=== PATIENT | female | born 1965 | race Caucasian/White ===

== ENCOUNTER 2025-01-23 07:19 | Outpatient (OUT) | payer BC, SELFPAY ==
--- OUTSIDE RECORDS SUMMARY | 2025-01-23 07:21 | XMS_ITS | Clinical Summary ---
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 Name Role Phone Unavailable Primary Care Provider Unavailabl e Social History Tobacco Use Types Packs/Day Years Used Date Smoking Tobacco: Never Assessed Comments Unknown Sex and Gender Information Value Date Recorded Sex Assigned at Not on file Legal Sex Female 10:13 PM EDT Gender Identity Not on file Sexual Orientation Not on file Last Filed Vital Signs Vital Sign Reading Time Taken Comments Blood Pressure - - Pulse - - Temperature - - Respiratory Rate - - Oxygen Saturation - - Inhaled Oxygen Concentration - - Weight 102 kg (225 lb) 08/31/2022 12:00 PM EST Height 160 cm (5' 3 ) 08/31/2022 12:00 PM EST Body Mass Index 39.86 08/31/2022 12:00 PM EST Plan of Treatment Not on file Insurance [employer]
--- NOTE | 2025-01-23 07:48 | MM_ITS ---
Patient Name: PEDRO SUTHERLAND MR#: [id number] : 1965 Exam Date: 01/23/2025 Ordering Doctor: DR TOÑO ALSTON M.D. RADIOLOGY REPORT PROCEDURE: MM TOMOSYNTHESIS SCREENING BI COMPARISON: MG MAMM SCREEN 3D [place] CAD, 05/26/2022. MG MAMM SCREEN 3D [place] CAD, 02/04/2021. MG MAMM [place] DIAG W CAD, 06/03/2018. MG MAMM [place] SCRN W CAD DIG, 03/20/2013. INDICATIONS: Screening Calculator Name NCI Breast Cancer Risk Assessment Tool 5 Year Breast Cancer Risk 4.20% Lifetime Breast Cancer Risk 20.10% Personal Breast Cancer No Personal Ovarian Cancer No Treatments None Family Cancers Sister with breast cancer at age 36; Mother with colon cancer at age 70. LOCATION: [facility] BREAST COMPOSITION: The breasts are extremely dense, which lowers the sensitivity of mammography. FINDINGS: RIGHT BREAST: MASS (finding with convex borders visible on two orthogonal views), characterized by circumscribed morphology, posterior depth, 8 o'clock position, and 9 mm size. LEFT BREAST: No significant suspicious finding. DIAGNOSTIC CATEGORY 0--INCOMPLETE: NEED ADDITIONAL IMAGING EVALUATION. RECOMMENDATIONS: ADDITIONAL MAMMOGRAPHIC VIEWS REQUIRED: RIGHT BREAST - spot compression ULTRASOUND: RIGHT BREAST PLEASE NOTE: A NORMAL MAMMOGRAM DOES NOT EXCLUDE THE POSSIBILITY OF BREAST CANCER. A CLINICALLY SUSPICIOUS PALPABLE LUMP SHOULD BE BIOPSIED. Dictated by: Phan Zamarripa DO on 01/23/2025 at 08:01 Approved by: Phan Zamarripa DO on 01/23/2025 at 08:49
== END 2025-01-23 07:20 | disposition home or self-care (01) ==
LOC: MAMMO 07:20
PROVIDERS: PCP Family Medicine; Visit Provider Family Medicine
DX: Z00.00 Encounter for general adult medical examination without abnormal findings (principal); Z12.31 Encounter for screening mammogram for malignant neoplasm of breast; I10 Essential (primary) hypertension; Z80.3 Family history of malignant neoplasm of breast; Z80.0 Family history of malignant neoplasm of digestive organs; R92.8 Other abnormal and inconclusive findings on diagnostic imaging of breast
CPT/HCPCS: 77063; 77067

== ENCOUNTER 2025-03-16 08:05 | Outpatient (OUT) | payer BC, SELFPAY ==
[2025-03-16 08:39] LABS: Hematocrit 40.8 % (36.0-48.0); Hemoglobin 13.8 g/dL (12.0-16.0); Immature Granulocytes Abs Auto 0.01 10^3/uL (0.00-0.03); Immature Granulocytes Pct Auto 0.2 % (0.0-0.5); Lymphocytes Absolute Auto 2.5 10^3/uL (1.2-3.8); Mean Corpuscular HGB Conc 33.8 g/dL (29.9-35.2); Mean Corpuscular Hemoglobin 31.1 pg (26.7-34.0); Mean Corpuscular Volume 91.9 fL (81.0-99.0); Platelet Count 318 10^3/uL (150-450); Red Blood Count 4.44 10^6/uL (4.20-5.40); White Blood Count 6.2 10^3/uL (4.0-11.0)
[2025-03-16 09:36] LABS: Alanine Aminotransferase 33 U/L (14-59); Albumin Globulin Ratio 1.0; Albumin Level 3.9 g/dL (3.4-5.0); Alkaline Phosphatase 96 U/L (46-116); Anion Gap 11.3; Aspartate Amino Transferase 23 U/L (15-37); Blood Urea Nitrogen 13.0 mg/dL (7.0-18.0); Calcium 9.6 mg/dL (8.5-10.1); Carbon Dioxide 27.0 mmol/L (21.0-32.0); Chloride 105 mmol/L (98-107); Cholesterol 240 mg/dL (<=200); Estimated GFR (African America >60 (>=60 mL/min/1.73m^2); Estimated GFR (Non-African Ame >60 (>=60 mL/min/1.73m^2); Globulin 3.8 g/dL; Glucose 103 mg/dL (74-106); HDL Cholesterol 83 mg/dL (40-60); Potassium 4.3 mmol/L (3.5-5.1); Sodium 139 mmol/L (136-145); Thyroid Stimulating Hormone 3.850 uIU/mL (0.358-3.740); Total Protein 7.7 g/dL (6.4-8.2); Triglycerides 57 mg/dL (<=150); VLDL CHOLESTEROL 11.4 mg/dL
== END 2025-03-16 08:06 | disposition home or self-care (01) ==
LOC: LAB 08:07
PROVIDERS: PCP Family Medicine; Visit Provider Family Medicine
DX: Z00.00 Encounter for general adult medical examination without abnormal findings (principal); I10 Essential (primary) hypertension
CPT/HCPCS: 36415; 80053; 80061; 84443; 85025

== ENCOUNTER 2025-08-10 09:03 | Emergency (ER) | payer BC, SELFPAY ==
[2025-08-10 09:07] VITALS: BP 172/81; PULSE 102; TEMP 37.4; O2SAT 94; BMI 39.0
[2025-08-10 09:32] LABS: Hematocrit 38.6 % (36.0-48.0); Hemoglobin 12.8 g/dL (12.0-16.0); Immature Granulocytes Abs Auto 0.05 10^3/uL (0.00-0.03); Immature Granulocytes Pct Auto 0.4 % (0.0-0.5); Lymphocytes Absolute Auto 1.5 10^3/uL (1.2-3.8); Mean Corpuscular HGB Conc 33.2 g/dL (29.9-35.2); Mean Corpuscular Hemoglobin 30.5 pg (26.7-34.0); Mean Corpuscular Volume 92.1 fL (81.0-99.0); Platelet Count 297 10^3/uL (150-450); Red Blood Count 4.19 10^6/uL (4.20-5.40); White Blood Count 13.8 10^3/uL (4.0-11.0)
[2025-08-10 09:34] LABS: Glucose Urine UA NEGATIVE (NEGATIVE)
--- NOTE | 2025-08-10 09:34 | ED_ITS ---
HPI HPI - General Adult General Chief complaint: Abdominal Pain Stated complaint: FEVER, R SIDED ABD PAIN Time Seen by Provider: 08/10/25 09:11 Source: patient Mode of arrival: walk-in Limitations: no limitations History of Present Illness HPI narrative: 60-year-old female presents for right sided abdominal pain. She has had it continuously for 4 days in the same area and she is worried about appendicitis. No constipation or diarrhea or injury. No dysuria or hematuria. The pain is moderate and continuous. Related Data Previous Rx's ?Medication ?Instructions ?Recorded cephalexin 250 mg/5 mL oral 500 mg (10 mL) PO TID 10 d ays #300 08/10/25 suspension mL ondansetron 4 mg disintegrating 4 mg PO Q6H PRN nausea and 08/10/25 tablet vomiting #20 tabs Allergies Allergy/AdvReac Type Severity Reaction Status Date / Time Penicillins Allergy Mild Hives Verified 08/10/25 09:07 Opioid HPI Opioid Management Most Recent Opioid Data: Last Pain Scale 8 Today, 09:07 Review of Systems ROS Narrative A ten point review of systems is negative except as noted above. PFSH PFSH Social History Little interest or pleasure in doing things: not at all Feeling down, depressed, or hopeless: not at all Exam Narrative Exam Narrative: Nurses note and vital signs reviewed General:The patient appears in no acute distress Skin:Warm, dry, no pallor noted.There is no rash noted. Head:Normocephalic, atraumatic Eye: Normal conjunctiva, no drainage Ears, Nose, Mouth, and Throat: oral mucosa is moist. Nares patent. Cardiovascular:Regular Rate and Rhythm Respiratory:Patient is in no distress, no accessory muscle use, lungs are clear to auscultation, no wheezing, rales or rhonchi Back:non-tender GI: Soft and nondistended. No masses. She has an area of tenderness on the right lateral aspect of her abdomen, not at McBurney's point. Musculoskeletal: The patient has no evidence of calf tenderness, no pitting edema, symmetrical pulses noted bilaterally Neurological:A&O, normal speech Psychiatric:Cooperative Constitutional Vital Signs, click to edit/add: Last Vital Signs Temp 99.4 F 08/10/25 09:07 Pulse 102 H 08/10/25 09:07 Resp 16 08/10/25 09:07 BP 172/81 H 08/10/25 09:07 Pulse Ox 94 L 08/10/25 09:07 Course Vital Signs Vital signs: Vital Signs Temperature 99.4 F 08/10/25 09:07 Pulse Rate 102 H 08/10/25 09:07 Respiratory Rate 16 08/10/25 09:07 Blood Pressure 172/81 H 08/10/25 09:07 Pulse Oximetry 94 L 08/10/25 09:07 Temperature 99.4 F 08/10/25 09:07 Pulse Rate 102 H 08/10/25 09:07 Respiratory Rate 16 08/10/25 09:07 Blood Pressure 172/81 H 08/10/25 09:07 Pulse Oximetry 94 L 08/10/25 09:07 Medical Decision Making MDM Narrative Medical decision making narrative: The patient is found to have pyelonephritis. Questionable cyst versus abscess was noted on the CAT scan per radiologist and this was discussed with the patient. She was given 2 g of IV Rocephin and discharged home on Keflex. She states she cannot take any pills because she cannot swallow them. She was also prescribed Zofran ODT. Return to ED if symptoms worsen. Treatment diagnosis and follow-up were discussed with the patient. Differential Diagnosis Differential Diagnosis: UTI, pyelonephritis, appendicitis Lab Data Lab results reviewed: Yes I reviewed the patient's lab results Labs: Lab Results 08/10/25 08/10/25 Range/Units 09:10 09:25 WBC 13.8 H (4.0-11.0) 10^3/uL RBC 4.19 L (4.20-5.40) 10^6/uL Hgb 12.8 (12.0-16.0) g/dL Hct 38.6 (36.0-48.0) % MCV 92.1 (81.0-99.0) fL MCH 30.5 (26.7-34.0) pg MCHC 33.2 (29.9-35.2) g/dL RDW 13.1 (11.0-15.0) % Plt Count 297 (150-450) 10^3/uL MPV 9.6 (9.5-13.5) fL Neut % (Auto) 81.0 H (43.0-75.0) % Lymph % (Auto) 10.6 L (20.5-60.0) % [place] % (Auto) 7.1 (1.7-12.0) % Eos % (Auto) 0.5 L (0.9-7.0) % Baso % (Auto) 0.4 (0.2-2.0) % Neut # (Auto) 11.2 H (1.4-6.5) 10^3/uL Lymph # (Auto) 1.5 (1.2-3.8) 10^3/uL [place] # (Auto) 1.0 H (0.3-0.8) 10^3/uL Eos # (Auto) 0.1 (0.0-0.7) 10^3/uL Baso # (Auto) 0.1 (0.0-0.1) 10^3/uL Abs Immat Gran (auto) 0.05 H (0.00-0.03) 10^3/uL Imm/Tot Granulo (auto) 0.4 (0.0-0.5) % Sodium 136 (136-145) mmol/L Potassium 4.2 (3.5-5.1) mmol/L Chloride 99 (98-107) mmol/L Carbon Dioxide 26.5 (21.0-32.0) mmol/L Anion Gap 14.7 BUN 17.0 (7.0-18.0) mg/dL Creatinine 0.89 (0.55-1.02) mg/dL Est GFR ( Amer) >60 (>=60 mL/min/1.73m^2) Est GFR (Non-Af Amer) >60 (>=60 mL/min/1.73m^2) BUN/Creatinine Ratio 19.1 Glucose 115 H (74-106) mg/dL Calcium 9.4 (8.5-10.1) mg/dL Urine Color Yellow (YELLOW) Urine Clarity Cloudy A (CLEAR) Urine pH 5.5 (5.0-9.0) Ur Specific [place] 1.025 (1.005-1.025) Urine Protein 100 A (NEG/TRACE) mg/dL Urine Glucose (UA) Negative (NEGATIVE) mg/dL Urine Ketones 40 A (NEGATIVE) mg/dL Urine Occult Blood Moderate A (NEGATIVE) Urine Nitrite Positive A (NEGATIVE) Urine Bilirubin Moderate A (NEGATIVE) Urine Urobilinogen 1.0 (0.2-1.0) EU/dL Ur Leukocyte Esterase Large A (NEGATIVE) Urine RBC 10-20 A (0-2) #/HPF Urine WBC 50-75 A (NONE SEEN) #/HPF Ur Squamous Epith Cells Few A (NONE/RARE) #/LPF Urine Crystals None seen (None Seen) #/HPF Urine Bacteria Moderate A (NONE SEEN) #/HPF Urine Casts None seen (NONE SEEN) #/LPF Urine Mucus Trace A (NONE SEEN) Ur Culture Indicated? Yes[facility] Imaging Data CT scan - abdomen: Radiologist's impression: ITS Impressions Abdomen/Pelvis CT 08/10/25 10:04 IMPRESSION: Right-sided pyelonephritis. Right interpolar hypodensity may represent a cyst versus early abscess. Fatty infiltration of the liver Cholelithiasis. Unremarkable appendix. Impression dictated by: Jose Eduardo Kay M.D. 08/10/2025 11:15 AM Dictation Location: [place] [id number] Electronically authenticated by: [id number] Y Date: 08/10/2025 11:15 Discharge Plan Discharge Chief Complaint: Abdominal Pain Clinical Impression: Pyelonephritis Patient Disposition: Home, Self-Care Time of Disposition Decision: 11:29 Condition: Good Mode of Transportation: Private Vehicle Prescriptions / Home Meds: New ondansetron 4 mg tablet,disintegrating 4 mg PO Q6H PRN (Reason: nausea and vomiting) Qty: 20 0RF cephalexin 250 mg/5 mL suspension for reconstitution 500 mg PO TID 10 Days Qty: 300 0RF Print Language: Finnish Instructions: Kidney Infection (ED) Referrals: Callie Hope MD [Primary Care Provider, Family Practice] - 1 week
[2025-08-10 09:40] LABS: Anion Gap 14.7; Blood Urea Nitrogen 17.0 mg/dL (7.0-18.0); Calcium 9.4 mg/dL (8.5-10.1); Carbon Dioxide 26.5 mmol/L (21.0-32.0); Chloride 99 mmol/L (98-107); Estimated GFR (African America >60 (>=60 mL/min/1.73m^2); Estimated GFR (Non-African Ame >60 (>=60 mL/min/1.73m^2); Glucose 115 mg/dL (74-106); Potassium 4.2 mmol/L (3.5-5.1); Sodium 136 mmol/L (136-145)
--- OUTSIDE RECORDS SUMMARY | 2025-08-10 09:43 | XMS_ITS | Clinical Summary ---
Author Organization [facility] Healthcare Address [address] [place] [address] Care Team Providers Care Typing Teacher Name Role Phone Unavailable Primary Care Provider Unavailabl e Social History Tobacco UseTypesPacks/DayYears UsedDateSmoking Tobacco: Never Assessed CommentsUnknownSex and Gender InformationValueDate RecordedSex Assigned at Not on fileLegal UueQjyuss70/15/2023 10:13 PM EDTGender IdentityNot on file Sexual OrientationNot on file Last Filed Vital Signs Vital SignReadingTime TakenCommentsBlood Pressure--Pulse--Temperature-- Respiratory Rate--Oxygen Saturation--Inhaled Oxygen Concentration--Fkvasu165 kg (225 lb)08/31/2022 12:00 PM IYKQirjjg278 cm (5' 3 )08/31/2022 12:00 PM ESTBody Mass Index39.8608/31/2022 12:00 PM EST Plan of Treatment Not on file Insurance
--- OUTSIDE RECORDS SUMMARY | 2025-08-10 09:43 | XMS_ITS | Clinical Summary ---
Author Organization [employer] [facility] tem Address [id number] [address] 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 Name Role Phone Callie Hope MD Primary Care Provider [phone] Allergies Active AllergyReactionsCriticalityNoted QyjpKweqhakyFynyeqctbdSgjrv72/24/2016 Medications MedicationSigDispense QuantityRefillsLast FilledStart DateEnd DateStatus amLODIPine (NORVASC) 10 mg tablet Take 10 mg by mouth daily.Active acetaminophen (TYLENOL) 500 mg tablet Take 1,000 mg by mouth every 6 (six) hours as needed for pain, headaches or fever.Active DOCUSATE SODIUM ORAL Take 100 mg by mouth as needed (constipation).Active Social History Tobacco UseTypesPacks/DayYears UsedDateSmoking Tobacco: Never AssessedChildcare AnswerDate PbkvxtvbBpovotpxhFvuuoth26/07/2019EmploymentAnswerDate Recorded MkafqizacbDapyvuw35/07/2019Purpose - LifeAnswerDate RecordedPurpose and direction in dvsrZdnbahw22/11/2021CommentsUnknownSex and Gender InformationValueDate RecordedSex Assigned at BirthNot on fileLegal SexFemale 03/18/2015 11:59 AM EDTGender IdentityNot on fileSexual OrientationNot on file Last Filed Vital Signs Vital SignReadingTime TakenCommentsBlood Fzclffqf026/5809 12:30 PM EDT Igmes787905/10/2016 12:30 PM FAQGtneeshthkp65.9 ??C (98.5 ??F)05/10/2016 12:30 PM EDTRespiratory Tuie605805/10/2016 12:30 PM EDTOxygen Saturation--Inhaled Oxygen Concentration--Weight--Cylydb192 cm (5' 3 )05/06/2016 1:00 PM EDTBody Mass Index -- Plan of Treatment Health MaintenanceDue DateLast DoneCommentsDepression Sfywkcsij67/04/1976Tobacco Rultcchlw74/04/1976Adult BMI Avykedelx13/04/1982DTaP,Tdap and Td Vaccines (1 - Tdap)1983Pap Smear1985Zoster (Shingles) Vaccine (1 of 2)2014 Influenza Cxwstsi6504/13/2025RSV ( or age 60+ yrs) (1 - 1-dose 75+ series) 2039 [employer] Not on file Insurance Care Teams Team MemberRelationshipSpecialtyStart DateEnd Date Callie Hope MD [address] [place] [address] PCP - [facility]05/05/16
[2025-08-10 09:46] LABS: Cast Seen? NONE SEEN #/LPF (NONE SEEN); Crystals Seen? None Seen #/HPF (None Seen); Urine Culture Indicated YES-FRMC
--- NOTE | 2025-08-10 10:04 | CT_ITS ---
The [address] [address] Patient Name: PEDRO SUTHERLAND MRN: [id number] date: 1965 Sex: F Assigned Patient Location: ER Current Patient Location: ER Accession/Order Number: [id number] Exam Date: 08/10/2025 09:55 Report Date: 08/10/2025 11:15 At the request of: MARISA ROGERS MD Procedure: CT abdomen pelvis w con CT ABDOMEN AND PELVIS WITH INTRAVENOUS CONTRAST: CLINICAL HISTORY: right sided pain COMPARISON: None TECHNIQUE: Spiral images were obtained through the abdomen and pelvis following the administration of intravenous contrast. This CT exam was performed using one or more following dose reduction techniques: Automated exposure control, adjustment of the mA and/or kV according to patient size, or use of iterative reconstruction technique. FINDINGS: Lung Bases: [Lung bases are clear. Small hiatal hernia.] Organs:Blurring right renal cortical medullary differentiation greatest superiorly. Right interpolar hypodensity 2.5 cm in size may represent a cyst versus early abscess. Abscess favored given the focal inflammatory changes at this level. No hydronephrosis. Left kidney unremarkable. Fatty liver. Cholelithiasis. Scattered liver lesions suggestive cysts. Spleen, adrenals and pancreas unremarkable.[ GI: Retained stool the colon. No bowel obstruction. Unremarkable appendix[ Pelvis:[Heterogeneous uterus with multifocal fibroids. Lobulated left ovarian cyst with multifocal septations 3.8 x 5.64 cm in size. Right ovary not visualized. Bladder mostly collapsed. Peritoneum/Retroperitoneum:No free air or free fluid. Aorta normal caliber.[ Abd wall/Bones:Multilevel facet arthropathy.[ CT/CT abdomen pelvis w con IMPRESSION: Right-sided pyelonephritis. Right interpolar hypodensity may represent a cyst versus early abscess. Fatty infiltration of the liver Cholelithiasis. Unremarkable appendix. Impression dictated by: Jose Eduardo Kay M.D. 08/10/2025 11:15 AM Dictation Location: [place] [address] Electronically authenticated by: [id number] Y Date: 08/10/2025 11:15
== END 2025-08-10 12:12 | disposition home or self-care (01) ==
PROVIDERS: Emergency Provider Emergency Medicine; PCP Family Medicine
DX: N12 Tubulo-interstitial nephritis, not specified as acute or chronic (principal)
CPT/HCPCS: 36415; 74177; 80048; 81001; 85025; 87086; 87088; 87186; 96365; 99284; J0696; Q9967